=== PATIENT | female | born 1940 | race Caucasian/White ===

== ENCOUNTER 2018-06-29 05:30 | Day surgery (SDC) | payer MEDICARE ==
[2018-06-27 13:52] LABS: BASOPHILS % (AUTO) 0.3 % (0.0-5.0); EOSINOPHILS % (AUTO) 2.4 % (0.0-8.0); HEMATOCRIT 41.4 % (36-48); LYMPHOCYTES % (AUTO) 23.8 % (21.0-51.0); MEAN CORPUSCULAR HEMOGLOBIN 28.7 pg (27.0-33.0); MEAN CORPUSCULAR HGB CONC 32.9 g/dL (32.0-36.0); MEAN CORPUSCULAR VOLUME 87.2 fL (79-99); MONOCYTES % (AUTO) 11.4 % (3.0-13.0); NEUTROPHILS % (AUTO) 62.1 % (40.0-77.0); NUCLEATED RED BLOOD CELLS 0.1 % (0.0-0.19); PLATELET COUNT (AUTO) 280 K/uL (130-400); RED BLOOD CELL COUNT(AUTO) 4.75 MIL/uL (4.00-5.50); RED CELL DISTRIBUTION WIDTH 14.6 % (11.0-15.5); WHITE BLOOD COUNT (AUTO) 5.7 K/uL (4.8-10.8)
[2018-06-27 13:57] LABS: CREATININE 0.7 mg/dL (0.5-1.5); POTASSIUM 4.9 mmol/L (3.5-5.1)
[2018-06-27 14:01] LABS: PARTIAL THROMBOPLASTIN TIME 47.2 SEC (26.3-35.5); PROTHROMBIN TIME 30.8 SEC (9.6-11.6)
[2018-06-27 14:49] VITALS: BP 140/86
--- NOTE | 2018-06-28 09:04 | NUR ---
LABS INFORMED STEWART CHRISTINE OF ABNORMAL PT/PTT/INR. SHE WILL INFORM DR. CHIRINOS.
--- NOTE | 2018-06-28 10:16 | NUR ---
RADHA CHRISTINE LVN ON PHONE. PER DR. CHIRINOS, PT TO HOLD COUMADIN TONIGHT AND REPEAT PT/PTT IN AM OF PROCEDURE AND INFORM HIM OF RESULTS. CALLED AND SPOKE TO PTS , MARY. HE VERBALIZED UNDERSTANDING.
[2018-06-29] VITALS (8 sets, daily range): BP systolic 114–178; BP diastolic 58–90
[~2018-06-29] VITALS: Ht 162.6 cm; Wt 64.9 kg
[~2018-06-29 05:30] MED LIST: ASPI-555 PO; COLON HEALTH PO; FURO40TA5 PO; LEVO50TA11 PO; LISI40TA4 PO; MULT-1203 PO; OMEGA 3 PO; QUET50TA55 PO; ROSOVASTATIN PO; VENL75CA97 PO; WARF-57 PO; WARF2.5T85 PO
[2018-06-29] MEDS ORDERED: SODIUM CHLORIDE 0.9% 1000ML 1,000 ML IV SCH (06:00)
[2018-06-29] MEDS ORDERED: CEFAZOLIN SODIUM 1 GM VIAL IVP SCH (06:00)
[2018-06-29 06:37] LABS: INR 1.67 (0.85-1.15); PARTIAL THROMBOPLASTIN TIME 38.2 SEC (26.3-35.5); PROTHROMBIN TIME 17.4 SEC (9.6-11.6)
--- NOTE | 2018-06-29 07:00 | NUR ---
NOTIFIED DR. CHIRINOS OF PATIENTS NEW LAB RESULTS. OK TO PROCEED. BOTH PATIENT AND SPOUSE RECEIVED INSTRUCTIONS ON POST PROCEDURE. BOTH VERBALIZED UNDERSTANDING AND AGREED TO COMPLY.
[2018-06-29] MEDS ORDERED: CEFAZOLIN SODIUM 1 GM VIAL ONE (07:12)
[2018-06-29] MEDS ORDERED: BUPIVACAINE/PF 0.25% 30ML VIAL IJ ONE (07:12)
[2018-06-29] MEDS ORDERED: LIDOCAINE HCL 1% MDV 50ML VIAL ONE ×2 (07:13→08:10)
[2018-06-29] MEDS ORDERED: MIDAZOLAM HCL 1 MG/ML 2ML VIAL ONE (08:06)
[2018-06-29] MEDS ORDERED: MEPERIDINE-PF 25 MG/ML SYG ONE ×2 (08:06→08:12)
[2018-06-29] MEDS ORDERED: ACETAMINOPHEN 325 MG TAB PO PRN (09:15)
[2018-06-29] MEDS ORDERED: WARFARIN SODIUM 7.5 MG TAB PO SCH (09:15)
[2018-06-29] MEDS ORDERED: ACETAMINOPHEN-CODEINE 300/30MG TAB PO PRN (09:15)
--- NOTE | 2018-06-29 09:24 | NUR ---
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 PATIENT WAS INSTRUCTED ON BEING ON BED REST FOR 3 HOURS. BOTH VERBALIZED UNDERSTANDING AND AGREED TO COMPLY.DR. CHIRINOS IN TO SPEAK TO PATIENT AND HER SPOUSE.
--- NOTE | 2018-06-29 10:30 | NUR ---
PATIENT IN NO DISTRESS, PATIENT HAD BREAKFAST IN BED. DRESSING TO LEFT UPPER CHEST IS CLEAN AND DRY, NO SIGNS OF BLEEDING OR HEMATOMA.
--- NOTE | 2018-06-29 11:52 | NUR ---
PATIENT STATES FEELING FINE NO DISTRESS. DRESSING TO LEFT UPPER CHEST IS CLEAN AND DRY.
--- NOTE | 2018-06-29 12:10 | NUR ---
PATIENT WAS ASSISTED UP TO CHAIR AND TO CHANGE INTO HER CLOTHES. DRESSING TO LEFT UPPER CHEST IS CLEAN AN DRY.
--- NOTE | 2018-06-29 12:30 | NUR ---
PATIENT DISCHARGED IN NO DISTRESS VIA WHEELCHAIR.
== END 2018-06-29 12:30 | disposition home or self-care (01) ==
LOC: DAH 05:30
PROVIDERS: ATTEND Internal Medicine Cardiovascular Disease
DX: Z45.010 Encounter for checking and testing of cardiac pacemaker pulse generator [battery] (principal); I48.2 Chronic atrial fibrillation; I44.2 Atrioventricular block, complete; Z79.899 Other long term (current) drug therapy; Z98.890 Other specified postprocedural states; Z79.84 Long term (current) use of oral hypoglycemic drugs; Z79.01 Long term (current) use of anticoagulants; I48.0 Paroxysmal atrial fibrillation; I21.3 ST elevation (STEMI) myocardial infarction of unspecified site; I10 Essential (primary) hypertension; E78.5 Hyperlipidemia, unspecified; E03.9 Hypothyroidism, unspecified
CPT/HCPCS: 33227; 36415 ×2; 80048; 85025; 85610 ×2; 85730 ×2; A4606; C1786; J0690; J2175 ×2; J2250; J3490 ×3; J7030; 99156; 99157